=== PATIENT | male | born 1950 | race Caucasian/White ===

== ENCOUNTER → 2018-03-30 | Outpatient (CLI) | payer MEDICARE ==
--- NOTE | 2018-04-01 09:31 | MR ---
EXAMINATION TYPE: MR shoulder LT wo con DATE OF EXAM: 03/30/2018 COMPARISON: None HISTORY: Pain in left shoulder / Tendinitis TECHNIQUE: Multiplanar, multisequence imaging of the left shoulder is performed without contrast. FINDINGS: Motion is seen on the axial images, slightly limiting evaluation. Rotator Cuff: There is a high-grade full-thickness and near complete tear of the supraspinatus measur ing approximately 1.6 x 1.2 cm with few distal insertional fibers remaining. There is retraction of t he supraspinatus approximately 1.9 cm with no significant muscular atrophy. There are multi focal bursal surface partial-thickness low-grade tears measuring approximately 6 mm a nd 5 mm. Bursal surface tear also measures 8 mm near the insertion. There is mild infraspinatus tendi nopathy with increased signal of the myotendinous junction. Subscapularis and infraspinatus are unremarkable in muscle volume and signal. Acromioclavicular Joint: Moderate acromioclavicular arthropathy is demonstrated as capsular hypertrop hy, subchondral cyst formation, and marginal osteophytes as well as joint space narrowing. No signifi cant acromial downsloping. Small marginal osteophytes placement will impression upon the supraspinatu s. Glenohumeral Joint: Mild joint space narrowing and small marginal osteophytes relate to mild arthropa thy. Small osseous cysts are also seen from degenerative change. Labrum: The labrum appears grossly intact given limitation of non-arthrogram study. Mild global celine l degeneration is present. Biceps Tendon: The long head of biceps is in normal location within bicipital groove. Minimal increas ed attenuation is seen of the intra-articular portion of the long head of the biceps relating to mild tendinosis. Bone marrow signal: No focal abnormal marrow signal is appreciated. Other: A small amount of fluid is seen within the subdeltoid/subacromial bursa as well as within the subcoracoid bursa. IMPRESSION: 1. High-grade full-thickness tear of the anterior and mid fibers of the supraspinatus with very few r emaining fibers (nearly complete tear). There is also associated retraction without muscular atrophy of the supraspinatus. 2. Low-grade partial-thickness multifocal versus surface and solitary articular surface low-grade par tial-thickness tears of the distal infraspinatus superimposed upon mild tendinopathy. 3. Moderate acromioclavicular arthropathy. 4. Small amount of subacromial/subdeltoid and subcoracoid joint fluid and may relate to bursitis clin ically. 5. Mild global labral degeneration without discrete tear. 6. Mild intra-articular portion biceps tendinosis.
== END | disposition home or self-care (01) ==
LOC: RADMRIMAIN 13:39
PROVIDERS: ATTEND Orthopaedic Surgery
DX: M19.012 Primary osteoarthritis, left shoulder (principal); M75.112 Incomplete rotator cuff tear or rupture of left shoulder, not specified as traumatic; M67.814 Other specified disorders of tendon, left shoulder

== ENCOUNTER → 2022-04-27 | Outpatient (CLI) | payer MEDICARE ==
[2022-04-27 16:01] LABS: Basophils # (A) 0.04 X 10*3/uL (0.00-0.10); Basophils % (A) 0.6 %; Eosinophils # (A) 0.25 X 10*3/uL (0.04-0.35); Eosinophils % (A) 3.6 %; HGB 15.6 g/dL (13.0-17.0); Lymphocytes # (A) 1.47 X 10*3/uL (0.90-5.00); Lymphocytes % (A) 21.1 %; MCHC 34.7 g/dL (32.0-37.0); MCV 92.2 fL (80.0-97.0); Mean Platelet Volume 10.1 fL (9.5-12.2); Monocytes # (A) 0.64 X 10*3/uL (0.20-1.00); Monocytes % (A) 9.2 %; NRBC Per 100 WBC 0 /100 WBCS (0.0-0.0); Neutrophils # (A) 4.51 X 10*3/uL (1.80-7.70); Neutrophils % (A) 64.5 %; Platelet Count 226 X 10*3/uL (140-440); RBC 4.88 X 10*6/uL (4.40-5.60); RDW 13.4 % (11.5-14.5); WBC 6.98 X 10*3/uL (4.50-10.00)
[2022-04-27 16:05] LABS: Chol/HDL Ratio 4.73 Ratio; LDL Cholesterol,Calculated 117.5 mg/dL (0.0-131.0)
[2022-04-27 16:11] LABS: ALT 22 U/L (10-49); AST 30 U/L (14-35); African American GFR (CKD) 97.9 (60.0-200.0); Albumin 3.8 g/dL (3.8-4.9); Albumin/Globulin Ratio 1.58 (1.60-3.17); Alkaline Phosphatase 42 U/L (41-126); BUN/Creat Ratio 16.22 Ratio (12.00-20.00); Blood Urea Nitrogen 14.6 mg/dL (9.0-27.0); Calcium 9.1 mg/dL (8.7-10.3); Carbon Dioxide 24.6 mmol/L (20.0-27.5); Chloride 104 mmol/L (96-109); Globulin 2.4 g/dL (1.6-3.3); Glucose 83 mg/dL (70-110); Non-African American GFR(CKD) 84.4 (60.0-200.0); Potassium 4.5 mmol/L (3.5-5.5); Sodium 142 mmol/L (135-145); Total Protein 6.2 g/dL (6.2-8.2)
== END | disposition home or self-care (01) ==
LOC: LABWHC1 09:58
PROVIDERS: ATTEND Family Medicine
DX: Z00.01 Encounter for general adult medical examination with abnormal findings (principal); Z12.5 Encounter for screening for malignant neoplasm of prostate; E55.9 Vitamin D deficiency, unspecified
CPT/HCPCS: 36415; 80053; 80061; 82306; 84153; 85025